=== PATIENT | male | born 1960 | race Caucasian/White ===

== ENCOUNTER → 2019-03-25 | Outpatient (CLI) | payer BC ==
--- NOTE | 2019-03-26 08:07 | XR ---
Left knee HISTORY: Trauma and pain 2 views of the left knee Bone mineralization, joint spaces and alignment are maintained. Suprapatellar increased density is pr esent. There is mild marginal spurring. Suspect vascular calcifications are present. IMPRESSION: No fracture or dislocation. Osteoarthritis, joint effusion, knee MRI may be of benefit.
== END | disposition home or self-care (01) ==
LOC: RADXRMAIN 14:26
PROVIDERS: ATTEND Nurse Practitioner Family
DX: M17.12 Unilateral primary osteoarthritis, left knee (principal); M25.462 Effusion, left knee